=== PATIENT | female | born 1975 | race Caucasian/White ===

== ENCOUNTER 2021-04-20 16:29 | Emergency (ER) | payer OTHER ==
[~2021-04-20] VITALS: Ht 167.6 cm; Wt 68.0 kg
[2021-04-20 17:03] VITALS: BP 147/85
--- NOTE | 2021-04-20 17:13 | PHYS DOC ---
Past History Additional Past Medical Histor: fibromyalgia Past Surgical History: Hysterectomy General Adult EDM: Chief Complaint: BACK PAIN OR INJURY HPI: HPI: Patient is a 45-year-old female that presents today with upper back pain. Patient states she has had the pain for over 4 months, she presents today with pain that has increased since Thursday. Patient states she followed up with her primary care physician this week was given an injection of Toradol and prescriptions for Lidoderm patches, muscle relaxants, Ultram, and instructed to take ibuprofen. Patient denies trauma, patient states she is also seeing physical therapy physical therapy since told her this week that she felt that "3 of her ribs were out of place", and she manipulated that area and patient states that since that time her pain has increased. Patient is also had multitude of other therapies such as stem therapy, dry needling, and physical therapy. Patient was very tearful while talking to her when asked if she was taking her medications as prescribed she says she is not taking them consistently only when her pain gets bad, she states this morning that she took an Ultram, a muscle relaxant, 800 mg of ibuprofen, and Tylenol 1 g. She states now that helped with her pain. She is requesting imaging such as an MRI. Patient was informed that MRI capabilities were not available at this facility and on a Thursday afternoon will have to be done emergently for emergent conditions which are hers does not qualify. Patient informed that she would need to follow-up with her primary care physician next week and he or she would have to decide if imaging was needed Review of Systems: Review of Systems: Constitutional: Denies fever or chills Eyes: Denies change in visual acuity HENT: Denies nasal congestion or sore throat Respiratory: Denies cough or shortness of breath Cardiovascular: Denies chest pain or edema GI: Denies abdominal pain, nausea, vomiting, bloody stools or diarrhea : Denies dysuria Musculoskeletal: Right scapular pain, upper back pain, right shoulder trapezius pain Integument: Denies rash Neurologic: Denies headache, focal weakness or sensory changes Endocrine: Denies polyuria or polydipsia Lymphatic: Denies swollen glands Psychiatric: Denies depression or anxiety Physical Exam: PE: Constitutional: Well developed, well nourished, mild distress, crying tearful HENT: Normocephalic, atraumatic, bilateral external ears normal, oropharynx moist, no oral exudates, nose normal. [] Eyes: PERRLA, EOMI, conjunctiva normal, no discharge. [] Neck: Normal range of motion, no tenderness, supple, no stridor. [] Cardiovascular:Heart rate regular rhythm, no murmur [] Lungs & Thorax: Bilateral breath sounds clear to auscultation [] Abdomen: Bowel sounds normal, soft, no tenderness, no masses, no pulsatile masses. [] Skin: Warm, dry, no erythema, no rash. [] Back: Tenderness noted along right scapular area also along the trapezius muscle, upper back area between the scapula and the spine, multiple trigger point noted. No pain or tenderness step-offs or crepitus noted midline of the neck upper back or lumbar area Extremities: Right arm has full range of motion, neurovascular intact in the fingers and hands. Neurologic: Alert and oriented X 3, normal motor function, normal sensory function, no focal deficits noted. [] Psychologic: Affect flat, judgement normal, mood tearful. [] Current Patient Data: Vital Signs: Vital Signs Date Time Temp Pulse Resp B/P (MAP) Pulse Ox O2 Delivery O2 Flow Rate FiO2 04/20/21 17:03 98.2 80 18 147/85 (105) 99 Room Air EKG: EKG: [] Radiology/Procedures: Radiology/Procedures: REASON: upper back pain, "ribs in back out of place" PROCEDURE: THORACIC SPINE 3V Study: XR THORACIC SPINE 3VIEWS Indication: Upper back pain. Comparison: None. Findings: 12 rib-bearing thoracic vertebral bodies. Alignment is within normal limits in the coronal and sagittal plane. No concerning vertebral body height loss. No disc space collapse or listhesis. Limited assessment of the posterior elements on account of overlapping structures but without an obvious deformity. The cardiomediastinal silhouette is within normal limits for size. Impression: No acute radiographic abnormality of the thoracic spine or advanced spondylosis. Electronically signed by: ORI CHATMAN MD (04/20/2021 6:08 PM) [facility] [] Heart Score: C/O Chest Pain: N/A Risk Factors: Risk Factors: DM, Current or recent (<one month) smoker, HTN, HLP, family history of CAD, obesity. Risk Scores: Score 0 - 3: 2.5% MACE over next 6 weeks - Discharge Home Score 4 - 6: 20.3% MACE over next 6 weeks - Admit for Clinical Observation Score 7 - 10: 72.7% MACE over next 6 weeks - Early Invasive Strategies Course & Med Decision Making: Course & Med Decision Making Pertinent Labs and Imaging studies reviewed. (See chart for details) 1820 spoke to patient and significant other regarding radiology results, patient informed that results were negative for any acute injury at this time of course that does not mean there is not a nerve or ligamental tendon issue. Patient was offered Flexeril 10 mg 3 times daily as needed also will give patient prednisone 20 mg x 5 days taken 1 tablet daily. Patient is agreeable to the plan of care patient states pain currently is a 6 out of 10 Dragon Disclaimer: Dragon Disclaimer: This electronic medical record was generated, in whole or in part, using a voice recognition dictation system. Departure Departure: Impression: Primary Impression: Upper back pain on right side Disposition: HOME / SELF CARE / HOMELESS Condition: STABLE Referrals: MONY ABREU DO, [facility] (PCP) Patient Instructions: Back Pain, Adult Additional Instructions: Continue with Lidoderm patches on in the morning off in the evening Continue with the Motrin as labeled directed Continue with Ultram as needed for severe pain May substitute Flexeril as a muscle relaxant 1 tablet every 8 hours as needed for muscle spasms please use with caution may cause drowsiness do not operate heavy machinery while using this Take prednisone 20 mg 1 tablet daily for 5 days Follow-up with your primary care physician on Thursday for further management of this pain May try ice 20 minutes on 3-4 times daily Biofreeze as labeled directed may also help with pain. Return to the emergency department if you have increased numbness and tingling's in the right arm, inability to move her right arm, pain moves to the front side of the chest and and pain not controlled with the above measures Scripts Cyclobenzaprine Hcl (CYCLOBENZAPRINE HCL) 10 Mg Tablet 1 TAB PO TID PRN PRN for PAIN, #21 TAB Prov: JOSE A GREENE CHAINER 04/20/21 Prednisone (PREDNISONE) 20 Mg Tablet 1 TAB PO DAILY for pain for 5 Days, #5 TAB Prov: JOSE A GREENE CHAINER 04/20/21 JOSE A GREENE CHAINER Apr 20, 2021 17:13
[2021-04-20] MEDS ORDERED: KETOROLAC 60 MG/2 ML VIAL. IM ONE (17:15)
[2021-04-20] MEDS ORDERED: ORPHENADRINE CITRATE 60 MG/2 ML VIAL. IM ONE (17:15)
[2021-04-20] MEDS ORDERED: ORPHENADRINE CITRATE 60 MG/2 ML VIAL. ONE (17:17)
--- NOTE | 2021-04-20 18:10 | RAD ---
Study: XR THORACIC SPINE 3VIEWS Indication: Upper back pain. Comparison: None. Findings: 12 rib-bearing thoracic vertebral bodies. Alignment is within normal limits in the coronal and sagitt al plane. No concerning vertebral body height loss. No disc space collapse or listhesis. Limited asse ssment of the posterior elements on account of overlapping structures but without an obvious deformit y. The cardiomediastinal silhouette is within normal limits for size. Impression: No acute radiographic abnormality of the thoracic spine or advanced spondylosis. Electronically signed by: ORI CHATMAN MD (04/20/2021 6:08 PM) [facility]
[2021-04-20] MEDS ORDERED: CYCL10TA19 PO (18:29)
[2021-04-20] MEDS ORDERED: PRED20TA PO (18:29)
== END 2021-04-20 19:01 | disposition home or self-care (01) ==
LOC: ER 16:29
DX: M54.6 Pain in thoracic spine (principal); M62.830 Muscle spasm of back; Z90.710 Acquired absence of both cervix and uterus
CPT/HCPCS: 72072; 96372; 99284; J1885; J2360